=== PATIENT | female | born 1955 | race Caucasian/White ===

== ENCOUNTER → 2016-12-06 | Outpatient (CLI) | payer BC | LOC: MC.RAD 13:04 | DX: Z12.31 Encounter for screening mammogram for malignant neoplasm of breast (principal) ==

== ENCOUNTER → 2017-12-19 | Outpatient (CLI) | payer BC | LOC: MC.RAD 13:46 | DX: Z12.31 Encounter for screening mammogram for malignant neoplasm of breast (principal) ==

== ENCOUNTER → 2019-01-15 | Outpatient (CLI) | payer MEDICARE, OTHER | LOC: MC.RAD 10:29 | DX: Z12.31 Encounter for screening mammogram for malignant neoplasm of breast (principal) ==

== ENCOUNTER → 2020-02-01 | Outpatient (CLI) | payer MEDICARE, OTHER | LOC: MC.RAD 13:33 | DX: Z12.31 Encounter for screening mammogram for malignant neoplasm of breast (principal) ==

== ENCOUNTER → 2021-03-02 | Outpatient (CLI) | payer MEDICARE, OTHER | LOC: MC.RAD 13:22 | DX: Z12.31 Encounter for screening mammogram for malignant neoplasm of breast (principal) ==

== ENCOUNTER → 2022-03-19 | Outpatient (CLI) | payer MEDICARE | LOC: MC.RAD 12:54 | DX: Z12.31 Encounter for screening mammogram for malignant neoplasm of breast (principal) ==

== ENCOUNTER → 2023-04-01 | Outpatient (CLI) | payer MEDICARE, OTHER | LOC: MC.RAD 12:57 | DX: Z12.31 Encounter for screening mammogram for malignant neoplasm of breast (principal) ==

== ENCOUNTER → 2023-07-31 | Outpatient (CLI) | payer MEDICARE, OTHER | LOC: COL.RAD 10:40 | DX: K21.9 Gastro-esophageal reflux disease without esophagitis (principal); K44.9 Diaphragmatic hernia without obstruction or gangrene ==

== ENCOUNTER 2023-09-09 07:51 | Day surgery (SDC) | payer MEDICARE ==
[2023-09-09] VITALS (10 sets, daily range): BP systolic 109–130; BP diastolic 64–71; PULSE 58–64; TEMP 97.5
[~2023-09-09] VITALS: Ht 171.4 cm; Wt 66.5 kg
[2023-09-09] MEDS ORDERED: diphenhydrAMINE 50 MG/ML 1 ML VIAL IV SCH (08:15)
[2023-09-09] MEDS ORDERED: methylPREDNISolone Sod Succ 125 MG/2 ML VIAL IV SCH (08:15)
[2023-09-09] MEDS ORDERED: 1/2 NS 1,000 ML IV SCH (08:15)
[2023-09-09 08:31] LABS: HEMOGLOBIN 14.6 g/dl (12.5-16.0); MEAN CELL VOLUME 93 fl (80.0-100.0); MEAN CORPUSCULAR HEMOGLOBIN 32 pg (27-31); MEAN CORPUSCULAR HGB CONC 34 g/dl (33.0-37.0); PLATELET COUNT 259 K/mm3 (130-400); RED BLOOD COUNT 4.63 M/mm3 (4.10-5.30); REDCELL DISTRIBUTION WIDTH-CV 12.6 % (11.5-14.5)
[2023-09-09 08:40] LABS: INR 1.1 (0.8-3.0)
[2023-09-09 08:43] LABS: PARTIAL THROMBOPLASTIN TIME 32.5 SECONDS (26.0-37.0)
[2023-09-09 08:45] LABS: CALCIUM 11.1 mg/dL (8.4-10.2); CREATININE, serum 0.96 mg/dL (0.57-1.11)
[2023-09-09] MEDS ORDERED: Nitroglycerin 2% Topical Oint 1 GM UD TD SCH (09:07)
[2023-09-09] MEDS ORDERED: MULTAQ400 MG PO (09:43)
[2023-09-09] MEDS ORDERED: ELIQUIS 5MG PO (09:44)
[2023-09-09] MEDS ORDERED: CARDIZEM120 MG PO (09:44)
[2023-09-09] MEDS ORDERED: ESTRADERM0.05 MG/24 TD (09:45)
[2023-09-09] MEDS ORDERED: UNISOM25 MG PO (09:45)
[2023-09-09] MEDS ORDERED: BENADRYL25 M2 PO (09:46)
[2023-09-09] MEDS ORDERED: PRILOSEC10 MG PO (09:46)
[2023-09-09] MEDS ORDERED: SYSTANE BALANCE10 M1 OP (09:46)
[2023-09-09] MEDS ORDERED: AIRBORNE CHEWA1 EAC1 PO (09:47)
[2023-09-09] MEDS ORDERED: TYLENOL 325MG325 MG PO (09:47)
--- NOTE | 2023-09-09 10:11 | NUR ---
See merge for all medication, assessment,intervention, and vitalsign times. Patient reports she took 25 mg Benadryl at home, per Jael Lorenz reduced dose of Benadryl to 25 mg IV. Patient also treated with solu medrol and pepcid per SEP. Patient has on nail maltese unable to remove, oxygen saturations monitored with hand held probe in addition to merge system.
[2023-09-09] MEDS ORDERED: Heparin 1,000 UNITS/ML 10 ML Multi-Dose VIAL IV SCH (10:39)
[2023-09-09] MEDS ORDERED: Midazolam 2 MG/2 ML VIAL IV SCH (10:40)
[2023-09-09] MEDS ORDERED: fentaNYL 50 MCG/ML 2 ML VIAL IV SCH (10:40)
[2023-09-09] MEDS ORDERED: niCARdipine (Cath Lab) 100 MCG/ML 10 ML VIAL IA SCH (10:42)
[2023-09-09] MEDS ORDERED: Iohexol 350 - 100 ML VIAL INCOR ONE (10:42)
--- NOTE | 2023-09-09 11:16 | NUR ---
Bedside report completed with Jael TRIMBLE. Express room 12. First set of vitals reviewed, NaCl 0.45% infusing at 100 ml/hr via dialflow. Patient has call light within reach. Site intact, reviewed with Jael TRIMBLE. Jael TRIMBLE denies questions/concerns at this time.
[2023-09-09] MEDS ORDERED: TAMBOCOR 1100 MG/TAB PO (14:04)
[2023-09-09] MEDS ORDERED: CARDIZEM CD 12120 MG PO (14:05)
[2023-09-09] MEDS ORDERED: SINGULAIR 110 MG/TAB PO (14:06)
--- NOTE | 2023-09-09 14:37 | NUR ---
pt tolerated recovery period well. vs remained within normal limits and IV discontinued upon discharge. right radial dressing clean dry and intact and pt remained free from signs of bleeding and hematoma. pt assisted to main lobby via wheelchair and remained free from acute concerns and complainst upon discharge.
== END 2023-09-09 14:38 | disposition home or self-care (01) ==
LOC: COL.CAR 07:51
PROVIDERS: Internal Medicine Cardiovascular Disease
DX: R94.39 Abnormal result of other cardiovascular function study (principal)
CPT/HCPCS: C1769; J1200; J1644; J2250; J2404; J2930; J3010; Q9967